=== PATIENT | female | born 1945 | race Caucasian/White ===

== ENCOUNTER → 2020-08-22 | Outpatient (CLI) | payer OTHER ==
[2020-08-22 11:16] LABS: ABSOLUTE BASOPHILS 0.1 thou/uL (0.0-0.2); ABSOLUTE EOSINOPHILS 0.4 thou/uL (0.0-0.7); ABSOLUTE LYMPHOCYTES 1.1 thou/uL (0.8-5.3); ABSOLUTE MONOCYTES 0.6 thou/uL (0.0-1.2); ABSOLUTE NEUTROPHILS 4.1 thou/uL (1.6-8.1); BASOPHILS 1.4 %; EOSINOPHILS 6.1 %; HEMATOCRIT 43.5 % (37.0-47.0); HEMOGLOBIN 14.7 gm/dL (12.0-15.0); LYMPHOCYTES 17.4 %; MCH 33.8 pg (26.0-34.0); MCHC 33.8 g/dL (28.0-37.0); MCV 99.8 fL (80.0-100.0); MPV 9.5 fl. (7.2-11.1); NUCLEATED RBCS 0 /100WBC; PLATELET COUNT* 211 thou/uL (150-400); POLYS 66.1 %; RBC 4.36 mil/uL (4.20-5.00); RDW-CV 14.8 % (10.5-14.5); WBC 6.3 thou/uL (4.0-11.0)
[2020-08-22 11:25] LABS: PROTIME 9.8 Seconds (9.20-11.50)
[2020-08-22 11:27] LABS: INR < 0.9
[2020-08-22 11:39] LABS: ALBUMIN 2.9 g/dL (3.4-5.0); CALCIUM 9.7 mg/dL (8.5-10.1); CREATININE 0.8 mg/dL (0.6-1.3); POTASSIUM 4.7 mmol/L (3.5-5.1); TOTAL BILIRUBIN 1.9 mg/dL (<0.1-1.0); TOTAL PROTEIN 7.7 g/dL (6.4-8.2)
[2020-08-23 05:08] LABS: HEPATITIS B SURFACE AG Negative (Negative)
[2020-08-23 15:07] LABS: ANA INTERPRETATION Negative (Negative)
== END ==
LOC: M.ULTRA 07-26 08:00
PROVIDERS: ATTEND Internal Medicine Gastroenterology
DX: R16.0 Hepatomegaly, not elsewhere classified (principal); R79.89 Other specified abnormal findings of blood chemistry